=== PATIENT | male | born 1975 | race Caucasian/White ===

== ENCOUNTER 2016-07-14 08:21 | Emergency (ER) | payer MEDICAID ==
[~2016-07-14] VITALS: Ht 170.2 cm; Wt 106.6 kg
[2016-07-14 08:36] VITALS: BP 141/87
--- NOTE | 2016-07-14 08:40 | NUR ---
PT AMBULATED TO BED 8 AT THIS TIME.
--- NOTE | 2016-07-14 08:42 | NUR ---
41M BIB SELF C/O "BUG BITE" TO RT INDEX FINGER X WEDNESDAY OR WEDNESDAY; REDNESS/SWELLING NOTED TO RT INDEX FINGER/RT HAND; PT STATES THROBBING PAIN TO RT INDEX FINGER, RADIATES UP RT ARM, 10/26; NO BLEEDING OR DRAINAGE NOTED TO SITE AT THIS TIME; PT STATES " I DON'T KNOW WHAT HAPPEN, BUT I THINK A BUG BIT ME"; RT RADIAL PULSE PALPABLE, RT CAP REFILL <3 SECONDS, NO LOSS OF SENSATION TO RT HAND AT THIS TIME; A&OX4, PERRL, BL LUNG SOUNDS CLEAR, RR EVEN/UNLABORED, SKIN IS WARM/DRY AT THIS TIME; PT DENIES N/V/D AT THIS TIME; PT RESTING IN BED W/ HOB ELEVATED AND IN LOWEST POSITION; POSITIONED FOR COMFORT; ER MD MADE AWARE OF STATUS, WILL CONTINUE TO MONITOR.
[2016-07-14 09:01] VITALS: BP 142/90
--- NOTE | 2016-07-14 09:01 | NUR ---
Patient discharged with v/s stable. Written and verbal after care instructions given and explained. Patient alert, oriented and verbalized understanding of instructions. Ambulatory with steady gait. All questions addressed prior to discharge. ID band removed. Patient advised to follow up with PMD. Rx of BACTRIM DS 800MG-160MG TAB, MOTRIN 800MG TAB & KEFLEX 500 MG CAP given. Patient educated on indication of medication including possible reaction and side effects. Opportunity to ask questions provided and answered.
== END 2016-07-14 09:01 | disposition home or self-care (01) ==
LOC: MED 08:21
DX: L03.011 Cellulitis of right finger (principal)
CPT/HCPCS: 99283

== ENCOUNTER 2016-07-17 11:03 | Emergency (ER) | payer MEDICAID ==
[~2016-07-17] VITALS: Ht 172.7 cm; Wt 105.7 kg
[2016-07-17 11:06] VITALS: BP 140/79
--- NOTE | 2016-07-17 12:45 | NUR ---
PT PRESENT TO ER W/ C/O BUG BITE ON RIGHT HAND x SINCE WEDNESDAY.RT HAND IS REDDENED AND SWOLLEN;PT STATES HE HAS NUMBNESS SENSATION ON RT ARM;PT AAOX4;NO ACUTE DISTRESS NOTED AT THIS TIME;DENIES ANY MEDICAL HX;DENIES CP/SOB/FEVER/COUGH/N/V.SKIN WARM TO TOUCH;UNLABORED BREATHING;HOB ELEVATED;NEEDS ATTENDED;SAFETY PREACUTION INSTITUTED; MADE AWARE OF PT'S CONDITION.
--- NOTE | 2016-07-17 13:06 | NUR ---
DR ALMARAZ AT BEDSIDE
[2016-07-17] MEDS ORDERED: LIDOCAINE 1% 500 MG/50 ML VIAL INJ ONE (13:15)
--- NOTE | 2016-07-17 13:54 | NUR ---
1 % LIDOCAINE WAS GIVEN BY DR SUNG POWELL.
--- NOTE | 2016-07-17 13:56 | NUR ---
PT AAOX4;NO ACUTE DISTRESS NOTED AT THIS TIME;PT TOLERATED WELL I AND D PROCEDURE;WILL CONTINUE TO MONITOR PT.
--- NOTE | 2016-07-17 14:08 | NUR ---
Patient discharged with v/s stable. Written and verbal after care instructions given and explained. Patient alert, oriented and verbalized understanding of instructions. Ambulatory with steady gait. All questions addressed prior to discharge. ID band removed. Patient advised to follow up with PMD.Opportunity to ask questions provided and answered.OCTAVIO ALMARAZ ADVISED PT TO CONITNUE TAKING THE MEDICATION THAT WAS PRESCRIBED TO THE PT LAST WEDNESDAY.ADVISED PT TO MONITOR WOUND SITE FOR INCREASE PAIN AND ANY DISCAHRGES AND PT AGREED TO IT.
[2016-07-17 14:10] VITALS: BP 140/86
== END 2016-07-17 14:08 | disposition home or self-care (01) ==
LOC: MED 11:03
DX: L02.511 Cutaneous abscess of right hand (principal); L03.011 Cellulitis of right finger; R03.0 Elevated blood-pressure reading, without diagnosis of hypertension
CPT/HCPCS: 26010; 73130; 90471; 90715; 99284; J2001

== ENCOUNTER 2016-07-19 09:27 | Emergency (ER) | payer MEDICAID ==
[~2016-07-19] VITALS: Ht 172.7 cm; Wt 102.1 kg
[2016-07-19 09:33] VITALS: BP 147/70
--- NOTE | 2016-07-19 09:40 | NUR ---
PT PRESENTS TO ER FOR WOUND RECHECK TO RIGHT INDEX FINGER. PT WAS HERE LAST WEDNESDAY DUE TO RT INDEX FINGER LACERATION;WOUND IS HEALING W/NO PUS NOTED;MILD SWELLING IS NOTED;PT DENIES F/NUMBNESS/INCREASE PAIN.DENIES CP/SOB;AAOX4;NO ACUTE DISYTRESS NOTED AT THIS TIME;HOB ELEVATED;NEEDS ATTENDED;SAFETY MEASURES DONE;MD MADE AWARE OF PT'S CONDITION.
--- NOTE | 2016-07-19 09:55 | NUR ---
Dr. Mathis evaluating patient at bedside.
[2016-07-19] MEDS ORDERED: NEOMYCIN/POLYMYXIN/BACITRACIN 0.9 GM/1 PKT TP ONE (10:05)
[2016-07-19 10:17] VITALS: BP 147/70
--- NOTE | 2016-07-19 10:17 | NUR ---
Patient discharged with v/s stable. Written and verbal after care instructions given and explained. Patient alert, oriented and verbalized understanding of instructions. Ambulatory with steady gait. All questions addressed prior to discharge. ID band removed. Patient advised to follow up with PMD.Opportunity to ask questions provided and answered.
== END 2016-07-19 10:15 | disposition home or self-care (01) ==
LOC: MED 09:27
DX: Z09 Encounter for follow-up examination after completed treatment for conditions other than malignant neoplasm (principal); R03.0 Elevated blood-pressure reading, without diagnosis of hypertension; Z98.890 Other specified postprocedural states
CPT/HCPCS: 99283

== ENCOUNTER 2016-11-14 12:03 | Emergency (ER) | payer MEDICAID ==
[~2016-11-14] VITALS: Ht 170.2 cm; Wt 105.8 kg
[2016-11-14 12:12] VITALS: BP 141/65
--- NOTE | 2016-11-14 14:58 | NUR ---
Patient ambulated to OF2 to be evaluated as fast track by Dr. Whatley. RN evaluating patient.
[2016-11-14 15:29] VITALS: BP 141/65
--- NOTE | 2016-11-14 15:30 | NUR ---
Patient discharged with v/s stable. Written and verbal after care instructions given and explained. Patient alert, oriented and verbalized understanding of instructions. Ambulatory with steady gait. All questions addressed prior to discharge. ID band removed. Patient advised to follow up with PMD. Rx of AMOXICILLIN AND EAR DROPS given. Patient educated on indication of medication including possible reaction and side effects. Opportunity to ask questions provided and answered.
== END 2016-11-14 15:30 | disposition home or self-care (01) ==
LOC: MED 12:03
DX: H60.91 Unspecified otitis externa, right ear (principal); R50.9 Fever, unspecified
CPT/HCPCS: 99283

== ENCOUNTER 2017-04-17 12:39 | Emergency (ER) | payer MEDICAID ==
[~2017-04-17] VITALS: Ht 170.2 cm; Wt 104.3 kg
[2017-04-17 12:50] VITALS: BP 131/71
--- NOTE | 2017-04-17 13:00 | NUR ---
PT TRIAGED, AMBULATED TO ER LOBBY WAITING FOR ER BED. ERMD AWARE OF PATIENT STATUS.
[2017-04-17] MEDS ORDERED: ACETAMINOPHEN EXTRA STRENGTH 500 MG TAB ONE (13:09)
--- NOTE | 2017-04-17 15:01 | NUR ---
PT TRIAGED, WAITING FOR ER BED. ERMD AWARE OF PATIENT STATUS.
--- NOTE | 2017-04-17 17:00 | NUR ---
PT TRIAGED, AA0x4, WAITING FOR ER BED. ERMD AWARE OF PATIENT STATUS.
[2017-04-17] MEDS ORDERED: ALBUTEROL SULFATE/IPRATROPIU 3 ML SOL IH ONE (17:30)
--- NOTE | 2017-04-17 17:30 | NUR ---
ER MD SOL AT BEDSIDE
--- NOTE | 2017-04-17 17:32 | NUR ---
42/M PRESENT TO ER C/O FEVER AND COLD SYMPTOMS x 8 DAYS. HX: NONE MEDS: NYQUIL AND MUCINEX
--- NOTE | 2017-04-17 18:19 | NUR ---
PT DONE WITH DUONED, CONT TO COUGH, REPORTS FEELING BETTER.
[2017-04-17 19:02] VITALS: BP 129/71
--- NOTE | 2017-04-17 19:02 | NUR ---
Patient discharged with v/s stable. Written and verbal after care instructions given and explained. Patient alert, oriented and verbalized understanding of instructions. Ambulatory with steady gait. All questions addressed prior to discharge. ID band removed. Patient advised to follow up with PMD. Rx of ALBUTEROL CODEINE PHOSPHATE given. Patient educated on indication of medication including possible reaction and side effects. Opportunity to ask questions provided and answered.
== END 2017-04-17 19:02 | disposition home or self-care (01) ==
LOC: MED 12:39
DX: R07.89 Other chest pain (principal); R50.9 Fever, unspecified; R53.1 Weakness; R05 Cough
CPT/HCPCS: 71010; 94640; 99283; J7620; Q0092

== ENCOUNTER 2017-06-25 18:11 | Emergency (ER) | payer MEDICAID ==
[~2017-06-25] VITALS: Ht 167.6 cm; Wt 104.3 kg
[2017-06-25 18:13] VITALS: BP_SYST 146; BP_SYST 156; BP_DIAS 49; BP_DIAS 81
--- NOTE | 2017-06-25 20:15 | NUR ---
To bed 4.
--- NOTE | 2017-06-25 20:17 | NUR ---
PATIENT PRESENTS TO ED WITH ABD PAIN. PT STATES MY STOMACH HURTS . DENIES N/V/D; SKIN IS PINK/WARM/DRY; AAOX4 WITH EVEN AND STEADY GAIT; LUNGS CLEAR BL; HR EVEN AND REGULAR; PT DENIES ANY FEVER, CP, SOB, OR COUGH AT THIS TIME; PATIENT STATES PAIN OF 8/10 AT THIS TIME; VSS; PATIENT POSITIONED FOR COMFORT; HOB ELEVATED; BEDRAILS UP X2; BED DOWN. ER MD MADE AWARE OF PT STATUS.
[2017-06-25] MEDS ORDERED: KETOROLAC 30 MG/ML VIAL IVP ONE (20:35)
[2017-06-25] MEDS ORDERED: NACL 0.9% 1,000 ML IV ONE (20:35)
[2017-06-25 20:45] LABS: BASOPHILS # (AUTO) 0.1 K/uL (0.00-0.22); BASOPHILS % (AUTO) 0.9 % (0.0-2.0); EOSINOPHILS # (AUTO) 0.1 K/uL (0-0.4); EOSINOPHILS % (AUTO) 2.1 % (0.0-4.0); HEMATOCRIT 49.6 % (36-52); HEMOGLOBIN 16.5 g/dL (12.0-18.0); LYMPHOCYTES # (AUTO) 2.3 K/uL (2.0-11.5); MEAN CORPUSCULAR HEMOGLOBIN 30 pg (27-31); MEAN CORPUSCULAR HGB CONC 33 g/dL (33-37); MEAN CORPUSCULAR VOLUME 89 fL (80-94); MONOCYTES # (AUTO) 0.2 K/uL (0.8-1.0); MONOCYTES % (AUTO) 3.6 % (1.7-9.3); NEUTROPHILS # (AUTO) 4.2 K/uL (1.8-7.7); NEUTROPHILS % (AUTO) 59.4 % (42.2-75.2); PLATELET COUNT (AUTO) 138 K/uL (140-450); RED BLOOD CELL COUNT(AUTO) 5.56 MIL/uL (4.20-6.10); RED CELL DISTRIBUTION WIDTH 13.2 % (11.6-13.7); WHITE BLOOD COUNT (AUTO) 6.9 K/uL (4.8-10.8)
[2017-06-25 21:21] LABS: ANION GAP 13.2 (8-16); CARBON DIOXIDE 30.5 mmol/L (21-32); CREATININE 0.9 mg/dL (0.7-1.3); POTASSIUM 3.7 mmol/L (3.5-5.1)
[2017-06-25 21:27] LABS: TOTAL BILIRUBIN 0.3 mg/dL (0.0-1.0)
--- NOTE | 2017-06-25 22:25 | NUR ---
Gretchen villanueva in [facility] - 06/25/17 at 2245 by JOSE RECEIVED REPORT FROM LILIANA KAISER
--- NOTE | 2017-06-25 22:35 | NUR ---
Dr. Wright evaluating patient.
[2017-06-25 22:53] VITALS: BP 151/90
--- NOTE | 2017-06-25 22:53 | NUR ---
Patient discharged with v/s stable. Written and verbal after care instructions given and explained. Patient alert, oriented and verbalized understanding of instructions. Ambulatory with steady gait. All questions addressed prior to discharge. ID band removed. Patient advised to follow up with PMD. Rx of VALIUM, NORCO AND IBUPROFEN given. Patient educated on indication of medication including possible reaction and side effects. Opportunity to ask questions provided and answered.
== END 2017-06-25 22:53 | disposition home or self-care (01) ==
LOC: MED 18:11
DX: M54.5 Low back pain (principal)
CPT/HCPCS: 36415; 74176; 80053; 81002; 83690; 85025; 96361; 96374; 99285; J1885; J7030

== ENCOUNTER 2017-09-04 06:40 | Emergency (ER) | payer MEDICAID ==
[~2017-09-04] VITALS: Ht 167.6 cm; Wt 105.9 kg
[2017-09-04 06:40] VITALS: BP 146/102
[2017-09-04 07:32] LABS: BASOPHILS # (AUTO) 0.1 K/uL (0.00-0.22); BASOPHILS % (AUTO) 1.6 % (0.0-2.0); EOSINOPHILS # (AUTO) 0.2 K/uL (0-0.4); EOSINOPHILS % (AUTO) 5.2 % (0.0-4.0); HEMATOCRIT 47.4 % (36-52); HEMOGLOBIN 16.5 g/dL (12.0-18.0); LYMPHOCYTES # (AUTO) 1.3 K/uL (2.0-11.5); LYMPHOCYTES % (AUTO) 28.8 % (20.5-51.1); MEAN CORPUSCULAR HEMOGLOBIN 31 pg (27-31); MEAN CORPUSCULAR HGB CONC 35 g/dL (33-37); MEAN CORPUSCULAR VOLUME 88.8 fL (80-94); MONOCYTES # (AUTO) 0.4 K/uL (0.8-1.0); MONOCYTES % (AUTO) 9.3 % (1.7-9.3); NEUTROPHILS # (AUTO) 2.4 K/uL (1.8-7.7); NEUTROPHILS % (AUTO) 55.1 % (42.2-75.2); PLATELET COUNT (AUTO) 115 K/uL (140-450); RED BLOOD CELL COUNT(AUTO) 5.34 MIL/uL (4.20-6.10); RED CELL DISTRIBUTION WIDTH 13.8 % (11.6-13.7); WHITE BLOOD COUNT (AUTO) 4.4 K/uL (4.8-10.8)
[2017-09-04 07:44] LABS: CARBON DIOXIDE 28.4 mmol/L (21-32); CREATININE 0.9 mg/dL (0.7-1.3); POTASSIUM 4.4 mmol/L (3.5-5.1)
[2017-09-04 07:50] LABS: ALBUMIN 3.9 g/dL (3.4-5.0); TOTAL BILIRUBIN 0.4 mg/dL (0.0-1.0)
[2017-09-04] MEDS: KETOROLAC 30 MG/ML VIAL IM ONE (08:05)
[2017-09-04 09:39] VITALS: BP 128/79
[2017-09-04 10:41] LABS: APPEARANCE,URINE CLEAR (CLEAR); BILIRUBIN,URINE NEGATIVE (NEGATIVE); BLOOD, URINE TRACE-I (NEGATIVE); COLOR,URINE YELLOW (YELLOW); LEUKOCYTE ESTERASE ,URINE NEGATIVE (NEGATIVE); NITRITE, URINE NEGATIVE (NEGATIVE); UGLUCOSE NEGATIVE (NEGATIVE)
[2017-09-04 10:50] LABS: RBC,URINE 0-5 (RARE) /HPF (0-5); WBC,URINE 0-5 (RARE) /HPF (0-5)
== END 2017-09-04 09:39 | disposition home or self-care (01) ==
LOC: MED 06:40
DX: K76.0 Fatty (change of) liver, not elsewhere classified (principal); M54.5 Low back pain
CPT/HCPCS: 36415; 76705; 80053; 81001; 82150; 83690; 84484; 85025; 93005; 96372; 99285; J1885; Q0092

== ENCOUNTER 2018-08-03 18:26 | Emergency (ER) | payer MEDICAID ==
[~2018-08-03] VITALS: Ht 170.2 cm; Wt 96.8 kg
[2018-08-03 18:29] VITALS: BP 141/59
[2018-08-03] MEDS ORDERED: KETOROLAC 60 MG/2 ML VIAL IM ONE (18:45)
--- NOTE | 2018-08-03 18:45 | NUR ---
C/O LOWER BACK PAIN ON L & R SIDE X 2 WEEKS, DENIED N/V/D/FEVER, RECENT INJURY. TENDERNESS NOTED TO BOTH SIDES.SKIN IS PINK/WARM/DRY; AAOX4 WITH EVEN AND STEADY GAIT; LUNGS CLEAR BL; HR EVEN AND REGULAR; VSS; PATIENT POSITIONED FOR COMFORT; HOB ELEVATED; BEDRAILS UP X1; BED DOWN. ER MD MADE AWARE OF PT STATUS.
--- NOTE | 2018-08-03 19:25 | NUR ---
ERMD AT BEDSIDE
[2018-08-03 20:21] LABS: ANION GAP 10.8 (8-16); CARBON DIOXIDE 30.1 mmol/L (21-32); CREATININE 0.7 mg/dL (0.7-1.3); POTASSIUM 3.9 mmol/L (3.5-5.1)
--- NOTE | 2018-08-03 21:13 | NUR ---
Patient discharged with v/s stable. Written and verbal after care instructions given and explained. Patient alert, oriented and verbalized understanding of instructions. Ambulatory with steady gait. All questions addressed prior to discharge. ID band removed. Patient advised to follow up with PMD. Rx of NAPROSYN 500MG given. Patient educated on indication of medication including possible reaction and side effects. Opportunity to ask questions provided and answered.
[2018-08-03 21:14] VITALS: BP 133/67
== END 2018-08-03 21:13 | disposition home or self-care (01) ==
LOC: MED 18:26
DX: M54.5 Low back pain (principal); E11.9 Type 2 diabetes mellitus without complications; X50.0XXA Overexertion from strenuous movement or load, initial encounter; Y93.89 Activity, other specified; Y92.89 Other specified places as the place of occurrence of the external cause; Y99.0 Civilian activity done for income or pay
CPT/HCPCS: 36415; 80048; 81002; 96372; 99283; J1885

== ENCOUNTER 2020-06-27 08:25 | Emergency (ER) | payer MEDICAID ==
[~2020-06-27] VITALS: Ht 177.8 cm; Wt 81.6 kg
[2020-06-27 08:35] VITALS: BP 142/75
--- NOTE | 2020-06-27 08:41 | NUR ---
C/O LOW BACK PAIN X2 WEEKS WHICH HAS GOTTEN SEVERE STARTING YESTERDAY. PATIENT IS ALMOST UNABLE TO AMBULATE. DENIES ANY INJURY OR TRAUMA. NO DEFORMITY NOTED AT THIS TIME. NO PMH NKDA
[2020-06-27] MEDS ORDERED: KETOROLAC 30 MG/ML VIAL IM ONE (08:55)
[2020-06-27] MEDS ORDERED: CYCLOBENZAPRINE 10 MG TAB PO ONE (08:55)
[2020-06-27] MEDS ORDERED: LIDOCAINE 5% 1 EA PATCH TP SCH (08:55)
--- NOTE | 2020-06-27 09:05 | NUR ---
PATIENT TAKEN TO XRAY AT THIS TIME
--- NOTE | 2020-06-27 09:13 | NUR ---
Patient returned from xray via wheelchair
--- NOTE | 2020-06-27 09:21 | NUR ---
Lab at bedside
[2020-06-27] MEDS ORDERED: IBUP-2213 PO (09:46)
[2020-06-27] MEDS ORDERED: CYCL-654 PO (09:46)
[2020-06-27 09:50] LABS: ANION GAP 11.2 (8-16); CARBON DIOXIDE 26.6 mmol/L (21-32); CREATININE 0.8 mg/dL (0.6-1.3); POTASSIUM 3.8 mmol/L (3.5-5.1)
[2020-06-27 10:12] VITALS: BP 142/75
--- NOTE | 2020-06-27 10:13 | NUR ---
Patient discharged with v/s stable. Written and verbal after care instructions given and explained. Patient alert, oriented and verbalized understanding of instructions. Ambulatory with steady gait. All questions addressed prior to discharge. ID band removed. Patient advised to follow up with PMD. Rx of CYCLOBENZAPINE, MOTRIN given. Patient educated on indication of medication including possible reaction and side effects. Opportunity to ask questions provided and answered.
== END 2020-06-27 10:13 | disposition home or self-care (01) ==
LOC: MED 08:25
DX: S39.012A Strain of muscle, fascia and tendon of lower back, initial encounter (principal); E11.9 Type 2 diabetes mellitus without complications; Z79.899 Other long term (current) drug therapy; X50.0XXA Overexertion from strenuous movement or load, initial encounter; Y93.89 Activity, other specified; Y92.89 Other specified places as the place of occurrence of the external cause; Y99.8 Other external cause status
CPT/HCPCS: 36415; 72100; 80048; 81002; 96372; 99284; J1885

== ENCOUNTER 2022-11-15 14:23 | Emergency (ER) | payer MEDICAID ==
[~2022-11-15] VITALS: Ht 172.7 cm; Wt 79.8 kg
[~2022-11-15 14:23] MED LIST: AMOX1TAB8 PO; CYCL-654 PO; IBUP-2213 PO; OFLO5SOL27 BOTH EARS
[2022-11-15 14:34] VITALS: BP 148/80; PULSE 70; RESP 17; TEMP 97.4; O2SAT 99
--- NOTE | 2022-11-15 15:09 | NUR ---
SWABS COLLECTED AND SENT TO LAB
[2022-11-15] MEDS ORDERED: NYST100022 PO (16:11)
[2022-11-15 16:58] LABS: BASOPHILS % (AUTO) 0.9 % (0.0-2.0); EOSINOPHILS % (AUTO) 1.2 % (0.0-4.0); HEMATOCRIT 51.2 % (36-52); HEMOGLOBIN 17.7 g/dL (12.0-18.0); LYMPHOCYTES # (AUTO) 0.8 K/uL (2.0-11.5); LYMPHOCYTES % (AUTO) 25.1 % (20.5-51.1); MEAN CORPUSCULAR HEMOGLOBIN 31 pg (27-31); MEAN CORPUSCULAR HGB CONC 35 g/dL (33-37); MEAN CORPUSCULAR VOLUME 88.8 fL (80-94); MONOCYTES # (AUTO) 0.3 K/uL (0.8-1.0); MONOCYTES % (AUTO) 9.2 % (1.7-9.3); NEUTROPHILS # (AUTO) 2.1 K/uL (1.8-7.7); NEUTROPHILS % (AUTO) 63.6 % (42.2-75.2); PLATELET COUNT (AUTO) 141 K/uL (140-450); RED BLOOD CELL COUNT(AUTO) 5.77 MIL/uL (4.20-6.10); RED CELL DISTRIBUTION WIDTH 13.4 % (11.6-13.7); WHITE BLOOD COUNT (AUTO) 3.3 K/uL (4.8-10.8)
[2022-11-15 17:01] LABS: ANION GAP 12.5 (8-16); CARBON DIOXIDE 28.1 mmol/L (21-32); CREATININE 0.9 mg/dL (0.6-1.3); POTASSIUM 4.6 mmol/L (3.5-5.1)
[2022-11-15 17:06] LABS: MONOTEST NEGATIVE (NEGATIVE)
[2022-11-15] MEDS ORDERED: ACET-10509 PO (17:06)
--- NOTE | 2022-11-15 17:15 | NUR ---
Patient discharged with v/s stable. Written and verbal after care instructions given and explained. Patient verbalized understanding. Ambulatory with steady gait. All questions addressed prior to discharge. Advised to follow up with PMD.
== END 2022-11-15 17:15 | disposition home or self-care (01) ==
LOC: MED 14:23
DX: J02.9 Acute pharyngitis, unspecified (principal); B37.0 Candidal stomatitis; E11.9 Type 2 diabetes mellitus without complications; Z79.899 Other long term (current) drug therapy
CPT/HCPCS: 36415; 80048; 85025; 86308; 87081; 99283

== ENCOUNTER 2023-03-04 08:52 | Emergency (ER) | payer MEDICAID ==
[~2023-03-04] VITALS: Ht 170.2 cm; Wt 83.9 kg
[~2023-03-04 08:52] MED LIST changes: +ACET-10509 PO; +NYST100022 PO
[2023-03-04 09:13] VITALS: BP 124/83; PULSE 62; RESP 18; TEMP 98; O2SAT 96
[2023-03-04] MEDS ORDERED: COROTSOL LEFT EAR (12:20)
[2023-03-04] MEDS ORDERED: AMOX500C25 PO (12:29)
[2023-03-04 12:39] VITALS: BP 125/70; PULSE 76; RESP 18; TEMP 97.8; O2SAT 98
== END 2023-03-04 12:40 | disposition home or self-care (01) ==
LOC: MED 08:52
DX: H60.92 Unspecified otitis externa, left ear (principal); H93.12 Tinnitus, left ear; R03.0 Elevated blood-pressure reading, without diagnosis of hypertension; E11.9 Type 2 diabetes mellitus without complications; Z79.2 Long term (current) use of antibiotics; Z79.899 Other long term (current) drug therapy; Z79.1 Long term (current) use of non-steroidal anti-inflammatories (NSAID)
CPT/HCPCS: 99283